=== PATIENT | female | born 1975 | race Caucasian/White ===

== ENCOUNTER 2021-09-06 21:30 | Emergency (ER) | payer OTHER ==
[~2021-09-06] VITALS: Ht 165.1 cm; Wt 68.0 kg
[2021-09-06 23:10] LABS: COVID AG,FIA SOURCE NASAL SWAB
[2021-09-06] MEDS ORDERED: BENZ-70 PO (23:32)
[2021-09-06 23:50] VITALS: BP 124/79
== END 2021-09-07 00:06 | disposition home or self-care (01) ==
LOC: EMS 21:32
DX: J02.8 Acute pharyngitis due to other specified organisms (principal); B97.89 Other viral agents as the cause of diseases classified elsewhere; I10 Essential (primary) hypertension; E03.9 Hypothyroidism, unspecified; Z88.0 Allergy status to penicillin
CPT/HCPCS: 87430; 99283